=== PATIENT | male | born 1980 | race Two or more races ===

== ENCOUNTER 2018-04-15 15:45 | Emergency (ER) | payer SELFPAY ==
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
[2018-04-15 18:43] VITALS: BP 131/88
== END 2018-04-15 19:07 | disposition home or self-care (01) ==
LOC: ER 15:45
DX: S42.291S Other displaced fracture of upper end of right humerus, sequela (principal); M25.511 Pain in right shoulder; M79.89 Other specified soft tissue disorders; R07.81 Pleurodynia; X58.XXXS Exposure to other specified factors, sequela
CPT/HCPCS: 99283; 73080; 73090; 73060; 71101; 73030; L3650